=== PATIENT | male | born 1985 | race African-American/Black ===

== ENCOUNTER 2018-10-13 11:59 | Emergency (ER) | payer BC ==
[~2018-10-13] VITALS: Ht 175.3 cm; Wt 165.4 kg
[2018-10-13 12:00] VITALS: BP 140/92
[2018-10-13] MEDS ORDERED: AUGM875T28 PO (13:04)
--- NOTE | 2018-10-14 07:04 | REP ---
Scrotal ultrasound for testicular pain: The right testis measures 4.0 x 1.9 x 2.8 cm. Left testis measures 4.2 x 1.5-0.2 cm. The testes are normal size. There are no testicular masses. There is vascular flow in both testes. The Doppler resistive index of the parenchymal arteries in the right testis is 0.67 and left testis 0.53. The right epididymal head measures 9.1 mm and left epididymal head measures 10 mm. There are no epididymal head cysts. There is a right epididymal 3.3 mm calcification. This right and left epididymi are otherwise unremarkable. There is a scrotal serg in the left justine scrotum measuring 3.4 cm, of no clinical significance. There are small bilateral hydroceles. Impression: Small bilateral hydroceles. Vascular flow in both testes. No testicular masses. 3.3 mm right epididymal calculus. The epididymi are otherwise unremarkable. Scrotal serg on the left, of no clinical significance. Electronically Signed by Rm Castillo MD 10/14/2018 06:55 A
== END 2018-10-13 13:15 | disposition home or self-care (01) ==
LOC: M ED 11:59
DX: N45.1 Epididymitis (principal); N43.3 Hydrocele, unspecified; H66.92 Otitis media, unspecified, left ear; J06.9 Acute upper respiratory infection, unspecified; Z88.2 Allergy status to sulfonamides